=== PATIENT | female | born 2005 ===

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

== ENCOUNTER 2023-03-14 21:48 | Emergency (ER) | payer OTHER ==
[~2023-03-14] VITALS: Ht 172.7 cm; Wt 71.7 kg
[~2023-03-14 21:48] MED LIST changes: +PANADOL EXTRA500 MG; +ZITHROMAX200 MG PO
[2023-03-15] MEDS ORDERED: CEPHALEXIN500 MG PO (00:38)
== END 2023-03-15 01:13 ==
LOC: ER 21:48 → EMR PED 21:50 → ER 21:50 → EMR PED 03-15 01:13
DX: S00.201A Unspecified superficial injury of right eyelid and periocular area, initial encounter (principal); X58.XXXA Exposure to other specified factors, initial encounter; Y93.69 Activity, other involving other sports and athletics played as a team or group; Y92.89 Other specified places as the place of occurrence of the external cause; Y99.8 Other external cause status